=== PATIENT | female | born 1975 | race Caucasian/White ===

== ENCOUNTER 2020-02-09 19:41 | Observation (INO) | payer BC ==
[~2020-02-09] VITALS: Ht 157.5 cm; Wt 84.5 kg
--- NOTE | 2020-02-09 20:19 | NUR ---
TO ED ROOM 14 PER W/C ACCOMPANIED BY FRIEND. PT C/O RLQ PAIN RADIATING TO RT FLANK; STARTED YESTERDAY W/ VOMITING. VOMITED AFTER EATING TODAY. TOOK PEPT-BISMOL YESTERDAY. NO MEDS FOR SX TODAY. LMP: N/A PARTIAL HYST. LAST BM: SMALL BM THIS AM. 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
--- NOTE | 2020-02-09 20:30 | NUR ---
AMBULATORY TO & FROM [facility]; SC[facility] URINE PROVIDED. SPECIMEN WILL BE WALKED TO LAB
[2020-02-09 20:59] LABS: MICROSCOPIC AUTO
[2020-02-09] MEDS ORDERED: ACETAMINOPHEN 325 MG TABLET PO ONE (21:00)
[2020-02-09] MEDS ORDERED: SODIUM CHLORIDE 0.9% 1,000ML IVBOLUS ONE (21:00)
[2020-02-09] MEDS ORDERED: PLEASE ENTER HEIGHT AND WEIGHT MC SCH (21:00)
[2020-02-09] MEDS ORDERED: SODIUM CHLORIDE FLUSH 10ML SYR IVF ONE (21:00)
[2020-02-09] MEDS ORDERED: ONDANSETRON 2MG/ML, 2ML IVPush ONE (21:00)
[2020-02-09] MEDS ORDERED: MORPHINE SULFATE 4 MG/ML, 1ML IVPush PRN ×2 (21:00→23:00)
[2020-02-09] MEDS ORDERED: KETOROLAC 30 MG/1 ML IVPush ONE (21:00)
[2020-02-09] MEDS ORDERED: KETOROLAC 30 MG/1 ML ONE (21:07)
[2020-02-09] MEDS ORDERED: ONDANSETRON 2MG/ML, 2ML ONE (21:07)
[2020-02-09] MEDS ORDERED: ACETAMINOPHEN 325 MG TABLET ONE (21:07)
[2020-02-09 21:11] LABS: MEAN CORPUSCULAR HEMOGLOBIN 29.2 pg (27.0-34.8); MEAN CORPUSCULAR HGB CONC 33.3 g/dL (32.4-35.8); MEAN CORPUSCULAR VOLUME 87.9 fL (80-100); MEAN PLATELET VOLUME 7.9 fL (7.4-10.4); PLATELET COUNT 316 x10^3/uL (130-400); RED BLOOD COUNT 4.72 x10^6/uL (3.82-5.3)
[2020-02-09 21:24] LABS: ALANINE AMINOTRANSFERASE 14 U/L (12-78); ALBUMIN 3.4 g/dL (3.4-5.0); ANION GAP 8 mmol/L (5-15); CALCIUM 8.8 mg/dL (8.5-10.1); CHLORIDE 103 mmol/L (98-107); CREATININE 0.76 mg/dL (0.55-1.02)
[2020-02-09 21:28] LABS: ALKALINE PHOSPHATASE 83 U/L (45-117); BILIRUBIN,TOTAL 0.7 mg/dL (0.2-1.0); TOTAL PROTEIN 8.1 g/dL (6.4-8.2)
--- NOTE | 2020-02-09 21:34 | NUR ---
NS HUNG. TYLENOL, ZOFRAN AND TORADOL GIVEN PER EMAR.
--- NOTE | 2020-02-09 21:37 | NUR ---
TO CT PER YVROSE
[2020-02-09] MEDS ORDERED: CEFOTETAN PMX 1GM/50ML 50 ML IV ONE (22:00)
[2020-02-09 22:04] LABS: BASOPHILS # (AUTO) 0.11 x10^3/uL (0-0.1); BASOPHILS % (AUTO) 1 % (0-1); EOSINOPHILS % (AUTO) 0 % (1-7); LYMPHOCYTES % (AUTO) 11 % (22-44); MD SCAN; MONOCYTES # (AUTO) 1.47 x10^3/uL (0.2-0.8); MONOCYTES % (AUTO) 8 % (2-9); NEUTROPHILS % (AUTO) 80 % (42-75)
--- NOTE | 2020-02-09 22:05 | NUR ---
PT REPORT TO PATTI AGUILAR. PT CARE TRANSFERRED.
[2020-02-09] MEDS ORDERED: CEFOTETAN PMX 1GM/50ML 50 ML ONE (22:07)
[2020-02-09] MEDS ORDERED: SODIUM CHLORIDE 0.9% 1,000 ML IV ONE (22:40)
[2020-02-09] MEDS ORDERED: ONDANSETRON 2MG/ML, 2ML IVPush PRN (23:00)
[2020-02-09] MEDS ORDERED: HYDROmorphone 1 MG/ML, 1ML INJ IVPush PRN (23:00)
[2020-02-09] MEDS ORDERED: PROMETHAZINE 25 MG/ML, 1ML IM PRN (23:00)
[2020-02-10 00:04] VITALS: BP 115/74
[2020-02-10] MEDS ORDERED: MORPHINE SULFATE 4 MG/ML, 1ML IVPush PRN (00:30)
[2020-02-10] MEDS ORDERED: ONDANSETRON 2MG/ML, 2ML IVPush PRN ×2 (00:30→08:00)
[2020-02-10] MEDS: LACTATED RINGERS 1,000 ML IV SCH ×2 (00:40→10:30)
[2020-02-10] MEDS ORDERED: DIPH25CA61 PO (00:44)
[2020-02-10] MEDS ORDERED: BUPIVACAINE/PF 0.25% ONE (06:16)
[2020-02-10 07:05] VITALS: BP 100/70
[2020-02-10] MEDS ORDERED: CHLORHEXIDINE 15 ML UDC MM STA (07:17)
[2020-02-10] MEDS ORDERED: OXYcodone 5 MG/5 ML ORAL.SOL UDC PO PRN (08:00)
[2020-02-10] MEDS ORDERED: DIPHENHYDRAMINE 50 MG/ML, 1ML IVPush PRN (08:00)
[2020-02-10] MEDS ORDERED: PROMETHAZINE 25 MG/ML, 1ML IVPush PRN (08:00)
[2020-02-10] MEDS ORDERED: PROPOFOL 10 MG/ML, 100ML IV ONE (08:00)
[2020-02-10] MEDS ORDERED: HYDROmorphone 1 MG/ML, 1ML INJ IVPush PRN (08:00)
[2020-02-10] MEDS ORDERED: ROCURONIUM 10 MG/ML,10ML ONE (08:00)
[2020-02-10] MEDS ORDERED: KETOROLAC 30 MG/1 ML ONE (08:00)
[2020-02-10] MEDS ORDERED: FENTANYL PF 100 MCG/2ML IV PRN (08:00)
[2020-02-10] MEDS ORDERED: DIAZEPAM 5 MG/ML, 2ML IVPush PRN (08:00)
[2020-02-10] MEDS ORDERED: CEFAZOLIN PMX 1GM/50ML ONE (08:00)
[2020-02-10] MEDS ORDERED: MIDAZOLAM 1 MG/ML, 2ML ONE (08:00)
[2020-02-10] MEDS ORDERED: MEPERIDINE/PF 25MG/0.5ML IVPush PRN (08:00)
[2020-02-10] MEDS ORDERED: DEXAMETHASONE 4 MG/ML, 1ML ONE (08:00)
[2020-02-10] MEDS ORDERED: ACETAMINOPHEN 325 MG TABLET PO PRN (08:00)
[2020-02-10] MEDS ORDERED: LABETALOL 5MG/ML, 20ML IV PRN (08:00)
[2020-02-10] MEDS ORDERED: hydrALAzine 20 MG/ML, 1ML IV PRN (08:00)
[2020-02-10] MEDS ORDERED: SUGAMMADEX 200 MG/2 ML IVPush ONE (08:00)
[2020-02-10] MEDS ORDERED: FENTANYL PF 100 MCG/2ML ONE ×2 (08:14→09:01)
[2020-02-10] MEDS ORDERED: OXYcodone 5 MG/5 ML ORAL.SOL UDC ONE (09:02)
[2020-02-10 10:00] VITALS: BP 114/72
[2020-02-10] MEDS ORDERED: ONDANSETRON 2MG/ML, 2ML IV PRN (10:30)
[2020-02-10] MEDS: morphine SULFATE 10 MG/ML, 1ML IV PRN ×2 (10:33→13:43)
[2020-02-10] MEDS ORDERED: HYDR-3652 PO (10:52)
[2020-02-10] MEDS ORDERED: KETOROLAC 30 MG/1 ML IV SCH (11:00)
[2020-02-10 15:00] VITALS: BP 114/71
== END 2020-02-10 16:20 | disposition home or self-care (01) ==
LOC: ED 22:10 → 4NE 23:47 → INTOOBSV 23:56 → 4NE 23:56 → DCLOUNGE 02-10 16:10
PROVIDERS: ADMIT Surgery; ATTEND Surgery
DX: K80.00 Calculus of gallbladder with acute cholecystitis without obstruction (principal); Z20.828 Contact with and (suspected) exposure to other viral communicable diseases; R50.9 Fever, unspecified; Z90.711 Acquired absence of uterus with remaining cervical stump; Z88.0 Allergy status to penicillin
CPT/HCPCS: 36415; 47562; 74176; 80053; 81001; 83690; 84703; 85025; 87635; 88304; 93005; 96361; 96365; 96375; 96376; 99285; G0378; J0690; J1100; J1885; J2250; J2270; J2405; J2704; J3490; J7030; J7120; J3010